=== PATIENT | female | born 2000 | race Caucasian/White ===

== ENCOUNTER 2025-01-16 14:11 | Emergency (ER) | payer BC, SELFPAY ==
[2025-01-16 14:14] VITALS: BP 123/88
[2025-01-16 14:31] LABS: Hematocrit 39.6 % (37.0-47.0); Hemoglobin 13.0 g/dL (12.0-16.0); Mean Corp Hgb Conc. 32.8 g/dL (33.0-37.0); Mean Corpuscular Volume 86.3 fL (81.0-99.0); Nucleated Red Blood Cells % 0 %; Platelet Count 261 10^3/uL (130-400); Red Cell Dist. Width 13.1 % (11.5-14.5)
[2025-01-16 14:47] LABS: ALT (SGPT) 27 U/L (0-35); AST (SGOT) 21 U/L (14-36); Albumin 4.3 g/dl (3.5-5.0); Alkaline Phosphatase 65 U/L (38-126); Blood Urea Nitrogen 11 mg/dl (7-17); Calcium 9.0 mg/dl (8.4-10.2); Carbon Dioxide 27 mmol/L (22-30); Chloride 107 mmol/L (98-107); Glucose 104 mg/dl (70-99); HCG, Serum Qualitative Screen Negative; Potassium 4.2 mmol/L (3.5-5.1); Sodium 138 mmol/L (135-145); Total Protein 7.4 g/dl (6.3-8.2); eGFR > 60.00
[2025-01-16 14:59] LABS: Troponin I < 0.012 ng/ml
--- NOTE | 2025-01-16 17:54 | ED.GENMED ---
History of Present Illness
General
Chief Complaint: Breathing Problem
Source: patient
Exam Limitations: none
Time Seen by Provider: 01/16/25 17:20
Nursing documentation reviewed up to this point in time: agreed with
History of Present Illness
History of Present Illness:
Patient to ED with complaint of chest heaviness and SOB. States she noted a 'scratchy' throat a few days ago. Chest heaviness and SOB followed this She was seen by PCP yesterday, sent for ddimer which was neg. Today symptoms feel worse, HR
elevated. Brought self to ED for eval. Denies fever/chills, n/v/d. Denies headache, dizziness, leg pain/swelling. No cough. Brought self to ED for eval.
Past History
Past History
ED Past Medical History: Psychiatric (ADHD, depression)
Review of Systems
Review of Systems
Allergies reviewed?: Yes
All Other Systems: ROS reviewed and negative except as documented in HPI and ROS
Constitutional: Reports fatigue
EENT: Reports sore throat (scratchy throat 3 days ago,)
Respiratory: Reports trouble breathing
Cardiac: Reports other (chest heaviness)
ABD/GI: Reports no symptoms
: Reports no symptoms
Musculoskeletal: Reports no symptoms
Skin: Reports no symptoms
Neurological: Reports weakness
Psychiatric: Reports no symptoms
Phy Exam
General Physical Exam
General Presentation: mild distress
General age: appears stated age
General Skin: warm and dry
General Habitus: normal
ENT Exam
ENT Exam: pharynx normal and swallowing well
Cardiovascular Exam
Cardiovascular Exam: tachycardia
Pulmonary Exam
Pulmonary Exam: lungs clear and no respiratory distress
Musculoskeletal Exam
Musculoskeletal Exam: full ROM, no edema and neuro vasc intact
Skin Exam
Skin Exam: normal color, warm/dry and no rash
Psychiatric Exam
Psychiatric Exam: normal mood/affect
Course
Orders/Labs/Results
Orders:
Orders
01/16/25 14:12
Electrocardiogram (*1) Urgent
Reason for Study: Chest Pain
EKG- Treatment ONCE
Test Result ONCE
01/16/25 14:26
Complete Blood Count/With Diff Urgent
Comprehensive Metabolic Panel Urgent
HCG, Serum Qualitative Screen Urgent
Comment: Notify provider if positive test present
Troponin I Urgent
01/16/25 17:52
CR Chest - 2 Views Urgent
Comment:
Reason For Exam: SOB
01/16/25 18:12
COVID-19 Antigen Urgent
Source: Nasal Swab
D-Dimer Urgent
Influenza A+B Rapid Molecular Urgent
ANAHI Source: Nasal Swab
Specimen Description:
01/16/25 19:25
Ipratropium/Albuterol Sulfate [Duoneb] 3 ml INH R NOW STA
01/16/25 20:10
Amoxicillin 875 mg/Clav 125 mg [Augmentin 875 mg/125 mg] 1 tablet PO NOW STA
Azithromycin [Zithromax] 500 mg PO NOW STA
Abnormal Lab Results
01/16/25
14:26
MCHC 32.8 L g/dL
(33.0-37.0)
Absolute Monos (auto) 0.7 H 10^3/uL
(0.1-0.6)
Monocytes % 10.8 H %
(1.7-9.3)
Glucose 104 H mg/dl
(70-99)
01/16/25 14:26
01/16/25 14:26
Vital Signs
Initial and Last Documented VS:
Initial Vital Signs
Temp Pulse Resp BP Pulse Ox
97.8 F 116 20 123/88 100
01/16/25 14:14 01/16/25 14:14 01/16/25 14:14 01/16/25 14:14 01/16/25 14:14
Last Documented Vital Signs
Temp Pulse Resp BP Pulse Ox
97.8 F 89 20 130/83 97
01/16/25 14:14 01/16/25 20:00 01/16/25 20:00 01/16/25 20:00 01/16/25 20:00
*Radiology
Radiology exam reviewed: preliminary read by ED provider (questionable RLL pneumonia)
*Pulse Oximetry
SaO2: 100
Oxygen Mode of Delivery: Room air
Patient hypoxic: no
*Critical Care Note
Total Time (30-74mins, 75-104mins- exclusive of procedures): Not Applicable
Update Note
Update Note:
Patient to ED with complaint of SOB, cough, chest heaviness. Symptoms started a few days ago with scratchy throat. Given duoneb in ED and she reports feeling better, now coughing up thick secretions. Pulse ox remains 98%. She remains afebrile.
Labs reviewed. WBC normal. CXR reviewed. Questionable RLL pneumonia. WIll placed on azithromyicn and zpack, albuterl MDI prn chest tightness. She is discharged home and will follow upw tih PCP. Given instructions on s/s toreturn to ED and she
is agreeable to plan.
ED Attending Note
-
Portions of this chart may have been created with voice recognition software.� Occasional wrong word or��sound alike� substitutions may have occurred due to the inherent limitations of voice recognition software.
Discharge Plan
Departure
Patient Disposition: Home (Routine Discharge)
Date of Disposition: 01/16/25
Time of Disposition: 20:12
Patient with high blood pressure during this ER visit?: No
Condition: Good
Covid-19: Not Applicable
Discharge Problem:
Pneumonia
Instructions: Pneumonia
Prescriptions:
New
amoxicillin-pot clavulanate 875-125 mg tablet
1 tab PO BID Qty: 14 0RF
azithromycin [Zithromax] 250 mg tablet
250 mg PO DAILY Qty: 4 0RF
albuterol sulfate [Ventolin HFA] 90 mcg/actuation HFA aerosol inhaler
2 puff inhalation Q6H PRN (Reason: shortness of breath or wheezing) Qty: 8.5 0RF
Referrals:
Kip Mcfarland MD [Family Provider, Family Practice] - Follow up in 2-3 days
Stand Alone Forms: Return to Work
Activity Restrictions/Additional Instructions:
Return to the emergency department immediately for any changes in/worsening of your symptoms.
Interventions
Interventions:
*Risk Screen - Suicide Last Done: 01/16/25 14:14
*General Assessment Last Done: 01/16/25 14:14
*Neglect/Abuse Screening Last Done: 01/16/25 20:32
*ED- Fall Risk Assessment Last Done: 01/16/25 18:17
*ED COVID-19 Vaccine History Last Done: 01/16/25 18:17
*Nursing Disposition Last Done: 01/16/25 20:31
ED- Cardiac Assessment Last Done: 01/16/25 18:18
ED- Pulmonary Assessment Last Done: 01/16/25 18:18
Discharge Date and Time
Discharge Date/Time: 01/16/25 20:32
Print Language: DOMINICAN
[2025-01-16 18:13] VITALS: BMI 54.8
[2025-01-16 18:37] LABS: D-Dimer 0.42 ug/mlFEU (0.00-0.50)
[2025-01-16 18:57] LABS: COVID-19 Antigen Negative (Negative)
[2025-01-16] MEDS: DUONEB 3 ML INH (19:29)
[2025-01-16 20:00] VITALS: BP 130/83
[2025-01-16] MEDS: AUGMENTIN 875 MG/125 MG 1 TABLET PO (20:21)
[2025-01-16] MEDS: ZITHROMAX 500 MG PO (20:22)
== END 2025-01-16 20:32 | disposition home or self-care (01) ==
LOC: EMR 14:11
PROVIDERS: Emergency Medicine; Nurse Practitioner; EMERGENCY PHYSICIAN Student in an Organized Health Care Education/Training Program; FAMILY PHYSICIAN Family Medicine
DX: J18.9 Pneumonia, unspecified organism (principal); Z11.52 Encounter for screening for COVID-19; F90.9 Attention-deficit hyperactivity disorder, unspecified type; F32.A Depression, unspecified; F41.9 Anxiety disorder, unspecified
CPT/HCPCS: 99283; 94640; 71046; 80053; 84484; 84703; 85025; 85379; 87502; 87811; 93005